=== PATIENT | female | born 1990 | race Caucasian/White ===

== ENCOUNTER → 2017-11-02 | Outpatient (CLI) | payer OTHER ==
[2017-11-02 16:48] LABS: FREE T4 0.83 ng/dL (0.76-1.46); FREE THYROXINE INDEX 2.5 ug/dL (1.4-4.5); T4(THYROXINE) 7.3 ug/dL (4.7-13.3)
[2017-11-02 17:09] LABS: T3 TOTAL 0.85 ng/mL
== END | disposition home or self-care (01) ==
LOC: LB 15:31
PROVIDERS: Family Medicine
DX: F41.8 Other specified anxiety disorders (principal)
CPT/HCPCS: 82652; 84439

== ENCOUNTER 2019-03-06 18:00 | Emergency (ER) | payer OTHER ==
[~2019-03-06] VITALS: Ht 157.5 cm; Wt 93.4 kg
[2019-03-06 18:05] VITALS: Ht 157.5 cm; Wt 93.4 kg
[2019-03-06 21:07] VITALS: BP 131/72
== END 2019-03-06 20:47 | disposition home or self-care (01) ==
LOC: ED 18:00
DX: S16.1XXA Strain of muscle, fascia and tendon at neck level, initial encounter (principal); F41.9 Anxiety disorder, unspecified; V43.02XA Car driver injured in collision with other type car in nontraffic accident, initial encounter; Y93.89 Activity, other specified; Y92.89 Other specified places as the place of occurrence of the external cause; Y99.8 Other external cause status

== ENCOUNTER → 2019-03-19 | Outpatient (CLI) | payer OTHER | END | disposition home or self-care (01) | LOC: MI 15:45 | DX: M23.92 Unspecified internal derangement of left knee (principal) | CPT/HCPCS: A9577 ==

== ENCOUNTER 2019-09-27 12:09 | Emergency (ER) | payer OTHER ==
[~2019-09-27] VITALS: Ht 157.5 cm; Wt 93.0 kg
[2019-09-27 12:13] VITALS: Ht 157.5 cm; Wt 93.0 kg
[2019-09-27 13:07] VITALS: BP 123/88
== END 2019-09-27 13:08 | disposition home or self-care (01) ==
LOC: ED 12:09
DX: S82.401A Unspecified fracture of shaft of right fibula, initial encounter for closed fracture (principal); X50.1XXA Overexertion from prolonged static or awkward postures, initial encounter; Y93.89 Activity, other specified; Y92.89 Other specified places as the place of occurrence of the external cause; Y99.8 Other external cause status
CPT/HCPCS: Q0092